=== PATIENT | male | born 1980 | race Two or more races ===

== ENCOUNTER 2024-07-16 13:40 | Emergency (ER) | payer SELFPAY ==
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
[2024-07-16 14:18] VITALS: BP 116/89; PULSE 82; RESP 20; TEMP 36.7; O2SAT 99
[2024-07-16 14:30] VITALS: PULSE 98; RESP 18; O2SAT 99; BMI 25.7
[2024-07-16] MEDS: fentaNYL CIT INJ 50 mCg/ML AMP 2ML IVP (14:58)
[2024-07-16] MEDS: SODIUM CHLORIDE 0.9% 1000 ML 1,000 ML 999 ML IV (15:00)
[2024-07-16 15:11] LABS: Basophils # (Auto) 0.1 Thou/mm3 (0.0-0.2); Basophils % (Auto) 1 % (0-2.5); Eosinophils # (Auto) 0.2 Thou/mm3 (0.0-0.5); Eosinophils % (Auto) 2 % (0-10); Hemoglobin 14.4 g/dL (13.5-16.0); Immature Granulocytes % (Auto) 1 % (0-0); Immature Granulocytes Auto 0.05 Thou/mm3 (0.00-0.00); Lymphocytes # (Auto) 1.4 Thou/mm3 (1.0-4.8); Lymphocytes % (Auto) 13 % (10-50); Mean Corpuscular HGB Conc 34.3 g/dl (31.0-37.0); Mean Corpuscular Hemoglobin 29.2 pg (25.0-35.0); Mean Corpuscular Volume 85 fL (80-100); Monocytes # (Auto) 0.8 Thou/mm3 (0.0-0.8); Monocytes % (Auto) 7 % (0-12); Neutrophils # (Auto) 8.6 Thou/mm3 (1.8-7.7); Neutrophils % (Auto) 78 % (37-80); Nucleated Red Blood Cell % 0 /100 WBC (0); Platelet Count 415 Thou/mm3 (140-440); RDW Standard Deviation 39.8 fL (35.1-43.9); Red Blood Count 4.93 Miln/mm3 (4.50-5.90)
[2024-07-16 15:32] LABS: Partial Thromboplastin Time 23.9 Seconds (22.0-36.0); Prothrombin Time 10.9 Seconds (9.0-12.2)
[2024-07-16 15:34] LABS: Alanine Aminotransferase 31 U/L (10-49); Albumin, Serum 4.3 gm/dL (3.5-5.0); Albumin/Globulin Ratio 1.6 (1.2-2.2); Alkaline Phosphatase 101 U/L (46-116); Anion Gap 7 (7-16); Aspartate Amino Transferase 45 U/L (0-34); BUN/Creatinine Ratio 20 Ratio (12-20); Bilirubin,Total 0.3 mg/dL (0.3-1.2); Blood Urea Nitrogen 18 mg/dL (9-23); Calcium 9.8 mg/dL (8.3-10.6); Calcium (Corrected) 9.8 mg/dL (8.5-10.1); Carbon Dioxide 28.7 mMol/L (20.0-31.0); Chloride 105 mMol/L (98-107); Creatinine (Component) 0.9 mg/dL (0.6-1.3); Estimated Creatinine Clearance 84.3 mL/min (>60); Globulin 2.7 gm/dL (2.3-3.5); Glucose 126 mg/dL (74-106); Osmolality,Calculated 285 (275-295); Potassium 4.3 mMol/L (3.4-5.1); Sodium 141 mMol/L (136-145); eGFR > 60 See Note
[2024-07-16 16:27] VITALS: BP 127/81; PULSE 86; RESP 19; TEMP 36.7; O2SAT 100
[2024-07-16 18:41] VITALS: BP 125/87; PULSE 89; RESP 18; TEMP 36.8; O2SAT 99
[2024-07-16 19:00] VITALS: BP 104/71; O2SAT 95
[2024-07-16 19:54] VITALS: BP 126/86; PULSE 88; RESP 17; TEMP 36.7; O2SAT 98
== END 2024-07-16 19:57 | disposition home or self-care (01) ==
PROVIDERS: Registered Nurse General Practice; Emergency Provider Emergency Medicine
DX: S22.41XA Multiple fractures of ribs, right side, initial encounter for closed fracture (principal); S27.321A Contusion of lung, unilateral, initial encounter; S00.81XA Abrasion of other part of head, initial encounter; Z23 Encounter for immunization
CPT/HCPCS: 36415; 70450; 71260; 72125; 74177; 80053; 85025; 85610; 85730; 90471; 96361; 96374; 99285; A4649; J3010; J7030; Q9967